=== PATIENT | female | born 1950 | race Caucasian/White ===

== ENCOUNTER 2019-07-17 06:50 | Day surgery (SDC) | payer MEDICARE, OTHER ==
[~2019-07-17] VITALS: Ht 162.6 cm; Wt 79.4 kg
[~2019-07-17 06:50] MED LIST: CINNAMON500 MG PO; DITROPAN XL10 MG PO
[2019-07-17] MEDS ORDERED: SERTRALINE HCL50 MG PO (07:11)
--- NOTE | 2019-07-17 08:18 | NUR ---
07/17/19 0818 Maurice,Ladan 0811 PT ARRIVED TO PACU ON 2L VIA NC, PT REACTIVE TO TACTILE STIMULI AND IS REORIENTED TO PACU. PT FALLS BACK TO SLEEP EASILY, PT ENCOURAGED TO DEEP BREATHE. ABD SOFT.
--- NOTE | 2019-07-17 09:14 | NUR ---
ICED WATER GIVEN. CALL LIGHT WITHIN REACH. PATIENT'S FRIEND AT BEDSIDE.
--- NOTE | 2019-07-17 10:49 | NUR ---
PT IS GIVEN VERBAL DC INSTRUCTIONS. SHE VERBALIZES UNDERSTANDING. SHE IS TAKEN TO VEHICLE VIA WC. SHE TRANSFERS HERSELF.
--- NOTE | 2019-07-18 09:58 | OR ---
[facility] [address], [place] [address] Signed DATE OF OPERATION: 07/16/2019 SURGEON: Anand Arambula MD DATE OF PROCEDURE: 07/17/2019 PREOPERATIVE DIAGNOSIS: Guaiac-positive stool (Cologuard). POSTOPERATIVE DIAGNOSES: 1. 5 mm polyps at mid transverse colon, 60, 25, and 10 cm. 2. Moderate sigmoid diverticulosis. 3. Minimal internal hemorrhoids. PROCEDURE: Colonoscopy with hot biopsy. ESTIMATED BLOOD LOSS: None. INDICATIONS: Sima is a 68-year-old female, who is now approaching penitentiary. She had been to establish with her primary care provider. She had a positive Cologuard test. Therefore, she was asked to see me with respect to the above. She told me she has no lower GI complaints. There is no family history of colon cancer or polyps. I had met with Sima in the office. I gave her a pamphlet on colonoscopy. She understands the nature of the test along with the risks including, but not limited to gas, bloating, crampy abdominal pain, bleeding, perforation requiring surgery, and missed diagnosis. She also understands the need for IV conscious sedation. She expressed understanding and wished to proceed. PROCEDURE NOTE: Sima was taken into our endoscopy suite and placed in the left lateral decubitus position. She was given a total of 8 mg of Versed and 150 mcg of fentanyl to cover the case. A digital rectal exam was performed and she had good sphincter tone. No external hemorrhoids. After this, the adult colonoscope was introduced and advanced all around into the cecum under direct visualization of camera. She took extra sedation and abdominal compression in order to advance the scope. Her prep was good. We could easily see the appendiceal orifice and the ileocecal valve. The scope was slowly Electronically Signed By: ANAND ARAMBULA MD 07/18/19 0958 PATIENT NAME: SIMA FARRIS OPERATIVE REPORT DATE OF : 50 REPORT #: [id number] PHYSICIAN: ANAND ARAMBULA MD PCP: SHAHID ALMAGUER DO REPORT IS CONFIDENTIAL AND NOT TO BE RELEASED WITHOUT AUTHORIZATION [facility] [address], [place] [address] Signed withdrawn. We took pictures throughout for photodocumentation. The above-mentioned polyps were easily removed with the help of hot biopsy forceps. She does have moderate sigmoid diverticulosis. They are moderate in size, moderate in number, and scattered about. The rectum was unremarkable. Upon retroflexion of scope, she has a minimal internal hemorrhoid tissue. After this, the gas was suctioned out and the colonoscope removed. Sima tolerated the procedure quite well. RECOMMENDATIONS: I will see Sima back in my office in 7 to 14 days to review her results. MD LYNNETTE Izquierdo/PATRICIA /[id number] cc: MD Nino Izquierdo DO Arian Kargar, DO Copies: ANAND ARAMBULA MD, JAMES D DO KARGAR, ARIAN DO ~ Electronically Signed By: ANAND ARAMBULA MD 07/18/19 0958 PATIENT NAME: SIMA FARRIS OPERATIVE REPORT DATE OF : 50 REPORT #: [id number] PHYSICIAN: ANAND ARAMBULA MD PCP: SHAHID ALMAGUER DO REPORT IS CONFIDENTIAL AND NOT TO BE RELEASED WITHOUT AUTHORIZATION
--- NOTE | 2019-07-18 16:59 | PATH ---
[facility] [address], [place] [address] Signed SPECIMEN(S): A COLON POLYP @ 10CM SPECIMEN(S): B MID TRANSVERSE COLON POLYP SPECIMEN(S): C COLON POLYP @ 60 CM SPECIMEN(S): D COLON POLYP @ 25 CM SPECIMEN SOURCE: A. COLON POLYP @ 10CM B. MID TRANSVERSE COLON POLYP C. COLON POLYP @ 60 CM D. COLON POLYP @ 25 CM CLINICAL HISTORY: Positive Cologuard test. MICROSCOPIC DESCRIPTION: Histologic sections of all submitted blocks are examined by light microscopy. These findings, together with the gross examination, support the pathologic diagnosis. FINAL PATHOLOGIC DIAGNOSIS: A. Colon, polyp at 10 cm, polypectomy: - Hyperplastic polyp. - Negative for dysplasia or malignancy. B. Colon, mid transverse, polyp, polypectomy: - Fragments of tubular adenoma. - Negative for high-grade dysplasia or malignancy. C. Colon, polyp at 60 cm, polypectomy: - Benign colonic mucosa with submucosal lipoma (1.5 cm). - Negative for dysplasia or malignancy. D. Colon, polyp at 25 cm, polypectomy: - Fragments of tubular adenoma. - Negative for high-grade dysplasia or malignancy. NAL:cml:C2NR GROSS DESCRIPTION: Four specimens are received in four containers, labeled "LS." A. The specimen, labeled "LS, 1 and colon at 10 cm" on the requisition is received in formalin and consists of a 0.2 cm, soft porter tissue fragment that is submitted in toto in cassette (A1). B. The specimen, labeled "LS, 2 and mid transverse" on the requisition is received in formalin and consists of two soft porter-red tissue fragments that measure 0.2 and 0.3 cm and are submitted in toto PATIENT NAME: IRON FARRIS PATHOLOGY DATE OF : 50 REPORT #: [id number] PHYSICIAN: TARUN PATHOLOGY PCP: SHAHID ALMAGUER DO REPORT IS CONFIDENTIAL AND NOT TO BE RELEASED WITHOUT AUTHORIZATION [facility] [address], [place] [address] Signed in cassette (B1). C. The specimen, labeled "LS 3, and colon at 60 cm" on the requisition is received in formalin and consists of a 0.4 x 0.3 x 0.2 cm soft porter, smooth, polypoid portion of tissue that is submitted in toto in cassette (C1). D. The specimen, labeled "LS, 4, and colon at 25 cm" on the requisition is received in formalin and consists of two soft, pale red tissue fragments that measure 0.2 and 0.3 cm and are submitted in toto in cassette (D1). SS (under the direct supervision of a pathologist) The Gross Description was prepared using a voice recognition system. The report was reviewed for accuracy; however, sound-alike word errors, addition and/or deletions may occur. If there is any question about this report, please contact Client Services. PERFORMING LABORATORY: The technical component was performed by [employer] [address] (Pick Up Man: Kimberly Busch MD; CLIA# [id number]). [facility] [address] [address] ([employer] Up Man: Adolfo Romero MD; CLIA# [id number]). Diagnostician: Vidya Webb MD Pathologist Electronically Signed 07/18/2019 Copies: ~ PATIENT NAME: IRON FARRIS PATHOLOGY DATE OF : 50 REPORT #: [id number] PHYSICIAN: TARUN SMITH PCP: SHAHID ALMAGUER DO REPORT IS CONFIDENTIAL AND NOT TO BE RELEASED WITHOUT AUTHORIZATION
== END 2019-07-17 10:35 | disposition home or self-care (01) ==
LOC: DS 06:50 → OPS 06:50 → DS 08:15 → OPS 10:35
PROVIDERS: Colon & Rectal Surgery
PROC: 0DBL8ZZ Excision of Transverse Colon, Via Natural or Artificial Opening Endoscopic (ICD-10-PCS; 2019-07-17)
PROC: 0DBE8ZZ Excision of Large Intestine, Via Natural or Artificial Opening Endoscopic (ICD-10-PCS; principal; 2019-07-17 08:15)
DX: D12.3 Benign neoplasm of transverse colon (principal); D12.6 Benign neoplasm of colon, unspecified; D17.5 Benign lipomatous neoplasm of intra-abdominal organs; K63.5 Polyp of colon; K57.30 Diverticulosis of large intestine without perforation or abscess without bleeding; K64.8 Other hemorrhoids; Z79.899 Other long term (current) drug therapy
CPT/HCPCS: 88305; 99153; G0500; J2250; J3010; J7121